=== PATIENT | female | born 1965 | race Caucasian/White ===

== ENCOUNTER 2018-02-24 17:47 | Emergency (ER) | payer SELFPAY ==
[~2018-02-24] VITALS: Ht 167.6 cm; Wt 75.0 kg
[2018-02-24 17:50] VITALS: BP 145/79; PULSE 91; RESP 16; TEMP 99.9; O2SAT 98
--- NOTE | 2018-02-24 18:00 | PD ---
HPI Chief Complaint: Skin Problem Time Seen by Provider: 18:00 Travel History International Travel<30 days: No Contact w/Intl Traveler<30days: No Traveled to known affect area: No History of Present Illness HPI 52-year-old female came to the emergency room with history of a boil on her left buttock since last Thursday. It has been getting bigger in size and painful. No history of fever or chills. Patient says she has never had abscesses in the past. Her niece was in the emergency room yesterday to get an abscess lanced. No history of MRSA. Vital signs otherwise stable. Patient is not a diabetic she says. Pain is worse when she walks. No radiation of the pain. Temperature in triage was 99.9. [facility] Past Medical History Narrative Medical List of her past medical, surgical, social and family history is reviewed from the nursing note. Social History Tobacco Use: Yes Allergies-Medications (Allergen,Severity, Reaction): Coded Allergies: Penicillins (Verified Allergy, Unknown, 02/24/18) Comments List of her allergies reviewed from the nursing note. Reported Meds & Prescriptions Reported Meds & Active Scripts Active Bactrim DS (Sulfamethoxazole-Trimethoprim) 800-160 Mg Tab 1 Tab PO BID Reported Zoloft (Sertraline HCl) 100 Mg Tab 100 Mg PO DAILY Zoloft (Sertraline HCl) 50 Mg Tab 50 Mg PO DAILY Narrative Medication Awaiting for the nurse to do the med reconciliation. Review of Systems Except as stated in HPI: all other systems reviewed are Neg Physical Exam Narrative GENERAL: Awake, alert, mildest SKIN: Focused skin assessment warm/dry. 4 x 4 centimeter erythematous, fluctuant, tender abscess on the left buttock inferior HEAD: Atraumatic. Normocephalic. EYES: Pupils equal and round. No scleral icterus. No injection or drainage. ENT: No nasal bleeding or discharge. Mucous membranes pink and moist. NECK: Trachea midline. No JVD. CARDIOVASCULAR: Regular rate and rhythm. No murmur appreciated. RESPIRATORY: No accessory muscle use. Clear to auscultation. Breath sounds equal bilaterally. GASTROINTESTINAL: Abdomen soft, non-tender, nondistended. Hepatic and splenic margins not palpable. MUSCULOSKELETAL: No obvious deformities. No clubbing. No cyanosis. No edema. NEUROLOGICAL: Awake and alert. No obvious cranial nerve deficits. Motor grossly within normal limits. Normal speech. PSYCHIATRIC: Appropriate mood and affect; insight and judgment normal. Data Data Last Documented VS Orders Orders Basic Metabolic Panel (Bmp) (02/24/18 18:03) Complete Blood Count With Diff (02/24/18 18:03) Blood Culture (02/24/18 18:03) Wound Culture And Gram Stain (02/24/18 18:03) Clindamycin Inj (Cleocin Inj) (02/24/18 18:15) Sulfamet-Trimeth Ds 800-160 Mg (Bactrim (02/24/18 18:15) Lidocai-Epi 1%-1:100,000 Inj (Xylocaine- (02/24/18 18:11) Sodium Chlor 0.9% 1000 Ml Inj (Ns 1000 M (02/24/18 18:45) Ed Discharge Order (02/24/18 18:35) Labs Laboratory Tests Test 02/24/18 19:15 White Blood Count 12.0 TH/MM3 Red Blood Count 4.26 MIL/MM3 Hemoglobin 13.1 GM/DL Hematocrit 38.8 % Mean Corpuscular Volume 91.2 FL Mean Corpuscular Hemoglobin 30.8 PG Mean Corpuscular Hemoglobin Concent 33.8 % Red Cell Distribution Width 12.3 % Platelet Count 253 TH/MM3 Mean Platelet Volume 7.4 FL Neutrophils (%) (Auto) 68.6 % Lymphocytes (%) (Auto) 24.0 % Monocytes (%) (Auto) 5.9 % Eosinophils (%) (Auto) 0.9 % Basophils (%) (Auto) 0.6 % Neutrophils # (Auto) 8.2 TH/MM3 Lymphocytes # (Auto) 2.9 TH/MM3 Monocytes # (Auto) 0.7 TH/MM3 Eosinophils # (Auto) 0.1 TH/MM3 Basophils # (Auto) 0.1 TH/MM3 CBC Comment DIFF FINAL Differential Comment Blood Urea Nitrogen 4 MG/DL Creatinine 0.64 MG/DL Random Glucose 96 MG/DL Calcium Level 8.6 MG/DL Sodium Level 135 MEQ/L Potassium Level 3.2 MEQ/L Chloride Level 101 MEQ/L Carbon Dioxide Level 26.4 MEQ/L Anion Gap 8 MEQ/L Estimat Glomerular Filtration Rate 98 ML/MIN MDM Medical Decision Making Medical Screen Exam Complete: Yes Emergency Medical Condition: Yes Medical Record Reviewed: Yes Differential Diagnosis Buttock abscess Narrative Course 6:07 PM I explained the incision and drainage procedure to the patient. This needs to be lanced and packed. Patient is getting IV clindamycin and Bactrim. Blood work is pending as well. Culture will be collected from the drainage. Refer to my procedure note. 6:32 PM patient tolerated the procedure well. She will be discharged home after the antibiotic and fluid. Procedures Procedure Narrative Incision and drainage: Patient was asked to lay prone on the stretcher. The area was cleaned with Betadine swabs 3. 5 mL of 1% lidocaine with epi was infiltrated to achieve local anesthesia. A cruciate incision was made on the point of maximum fluctuance. Immediately pus started to come out. Swabs were collected for culture. Forceps were introduced to break the loculations. Eventually once all the pus seemed to have come out the abscess cavity was packed with iodoform gauze strip. The area was cleaned and dry dressing applied. Patient tolerated the procedure well. EKG Prior to Arrival: No Diagnosis Primary Impression: Left buttock abscess Additional Instructions: Please return to the emergency room in 48 hours to get the packing removed. Use sitz bath 4-5 times a day 20 minutes each time. Take the antibiotic as per the prescription direction. Return to the ER earlier if condition worsens any other new concerns. If the packing comes out and do not panic and just continue taking the antibiotic till the course is finished. You can take Tylenol/Motrin/ibuprofen/Advil for pain relief. These medications are available [id number]. Med/Other Pt SpecificInfo: Prescription(s) given Scripts Sulfamethoxazole-Trimethoprim (Bactrim DS) 800-160 Mg Tab 1 TAB PO BID for Infection, #20 TAB 0 Refills Prov: Smiley Lowery MD 02/24/18 Disposition: DISCHARGE HOME Condition: Stable Smiley Lowery MD Feb 24, 2018 18:00
[2018-02-24] MEDS ORDERED: ZOLO100T PO (18:09)
[2018-02-24] MEDS ORDERED: ZOLO50TA PO (18:09)
[2018-02-24] MEDS ORDERED: LIDOCAINE 1%/EPINEPHrine 1:100,000 SOLN 30 ML VIAL ONE (18:11)
[2018-02-24] MEDS ORDERED: CLINDAMYCIN INJ 600 MG in SODIUM CHLORIDE 0.9% INJ 100 ML IV ONE (18:15)
[2018-02-24] MEDS ORDERED: SULFAMETHOXAZOLE-TRIMETHOPRIM DS 800-160 MG TAB PO ONE (18:15)
[2018-02-24] MEDS ORDERED: BACT800T5 PO (18:35)
[2018-02-24] MEDS ORDERED: SODIUM CHLOR 0.9% 1000 ML INJ 1,000 ML IV ONE (18:45)
[2018-02-24 19:15] VITALS: BP 138/76; PULSE 76; RESP 16; O2SAT 97
[2018-02-24 19:35] LABS: AUTOMATED NEUTROPHIL # 8.2 TH/MM3 (1.8-7.7); BASOPHIL # 0.1 TH/MM3 (0-0.2); BASOPHIL % 0.6 % (0.0-2.0); EOSINOPHIL # 0.1 TH/MM3 (0-0.4); EOSINOPHIL % 0.9 % (0.0-4.0); HEMATOCRIT 38.8 % (35.0-46.0); HEMOGLOBIN 13.1 GM/DL (11.6-15.3); LYMPHOCYTE # 2.9 TH/MM3 (1.0-4.8); MEAN CELL VOLUME 91.2 FL (80.0-100.0); MEAN CORPUSCULAR HEMOGLOBIN 30.8 PG (27.0-34.0); MEAN CORPUSCULAR HGB CONC 33.8 % (32.0-36.0); MEAN PLATELET VOLUME 7.4 FL (7.0-11.0); MONO % 5.9 % (0.0-8.0); MONOCYTE # 0.7 TH/MM3 (0-0.9); NEUT % 68.6 % (16.0-70.0); PLATELET COUNT 253 TH/MM3 (150-450); RED BLOOD COUNT 4.26 MIL/MM3 (4.00-5.30); RED CELL DISTRIBUTION WIDTH 12.3 % (11.6-17.2)
[2018-02-24 19:48] LABS: CALCIUM 8.6 MG/DL (8.5-10.1)
[2018-02-24 19:49] LABS: BICARBONATE 26.4 MEQ/L (21.0-32.0)
[2018-02-24 19:52] LABS: CREATININE 0.64 MG/DL (0.50-1.00)
[2018-02-24 20:46] VITALS: BP 140/79
== END 2018-02-24 20:48 | disposition home or self-care (01) ==
LOC: PHED 17:47
DX: L02.31 Cutaneous abscess of buttock (principal)
CPT/HCPCS: 10060; 80048; 85025; 86403; 87040; 87070; 87186; 96361; 96365; 99284; J7030; 87205